=== PATIENT | male | born 1965 | race Caucasian/White ===

== ENCOUNTER 2018-05-25 09:18 | Day surgery (SDC) | payer OTHER ==
[2018-05-25] MEDS ORDERED: MIDAZOLAM HCL 2MG/2ML VIAL IV ONE (09:19)
[2018-05-25] MEDS ORDERED: LIDOCAINE 2% MDV (20MG/ML) 20ML VIAL IV ONE (09:19)
[2018-05-25] MEDS ORDERED: PROPOFOL 10 MG/ML VIAL IV ONE (09:19)
--- NOTE | 2018-05-28 09:30 | Operative Note ---
DATE OF SURGERY: 05/25/2018 SURGEON: Julitete Mtz MD OPERATION: COLONOSCOPY. INDICATIONS: This is a 53-year-old male with history of average risk for colorectal cancer who presented for screening colonoscopy. POSTOPERATIVE DIAGNOSES: 1. Descending colon ulcer, status post biopsies. 2. Otherwise normal colon and terminal ileal mucosa. ANESTHESIA: Sedation is per Anesthesia. Pulse oximetry was monitored throughout the procedure to maintain O2 saturation of 90% or greater. Supplemental oxygen was administered via nasal cannula. Cardiac and vital signs were monitored throughout the duration of the procedure, and they were stable. The procedure of colonoscopy and risks and alternatives of the procedure, including the risk of bleeding and perforation, among others, were explained to the patient who voiced understanding and agreed to have the procedure done. Physical examination was performed, and the patient was found stable for sedation. PROCEDURE: The patient was placed in the left lateral position. Sedation was initiated. A digital rectal exam was performed and showed some mild external hemorrhoids with no palpable rectal masses. An Olympus PCF-180AL colonoscope was then inserted into the rectum under direct visualization. It was advanced to the cecum without difficulty. The ileocecal valve and appendiceal orifice were identified and photographed. The colonic mucosa was carefully examined upon introduction of the colonoscope. In the descending colon were linear ulcerations with erythema but no stricture or any polyp was noted. Multiple biopsies were obtained. The rest of the colonic mucosa appeared normal. The ileocecal valve was intubated and terminal ileal mucosa was inspected for about 10 cm and it appeared normal. The colonoscope was then withdrawn while carefully examining the colonic mucosal surfaces. No other lesions were noted. In the rectum, retroflexion was performed and grade 1 internal hemorrhoids were noted. Multiple random colon biopsies were obtained to rule out colitis. The colonoscope was then withdrawn and the procedure was terminated. The patient tolerated the procedure well without any immediate complications. The patient remained with stable vital signs and was transferred to the recovery room. RECOMMENDATIONS: 1. The patient should be on a high-fiber diet. 2. The patient is to have a repeat colonoscopy because of the suboptimal bowel preparation in about 5 years. Thank you for allowing me to participate in the care of your patient. CC: MD ANNA Chandler
== END 2018-05-25 11:21 | disposition home or self-care (01) ==
LOC: HOP 09:18
PROVIDERS: ATTEND Internal Medicine Gastroenterology
DX: Z12.11 Encounter for screening for malignant neoplasm of colon (principal); K63.3 Ulcer of intestine; I10 Essential (primary) hypertension; E11.9 Type 2 diabetes mellitus without complications